=== PATIENT | female | born 1975 | race Caucasian/White ===

== ENCOUNTER 2021-11-28 02:08 | Inpatient (IN) | payer MEDICAID, OTHER ==
[~2021-11-28] VITALS: Ht 152.4 cm; Wt 87.0 kg
[2021-11-28 03:35] LABS: Basophils # (auto) 0.1 10 ^3/uL (0-0.2); Eosinophils # (auto) 0 10 ^3/uL (0-0.8); Hemoglobin 11.1 g/dL (12.2-16.2); Lymphocytes # (auto) 2.1 10 ^3/uL (0.4-5.4); Monocytes # (auto) 0.8 10 ^3/uL (0-1.3)
[2021-11-28 03:37] LABS: Basophils % (auto) 0.9 % (0.0-2.0); Eosinophils % (auto) 0.5 % (0.0-7.0); Hematocrit 36.7 % (36.0-46.0); Lymphocytes % (auto) 24.8 % (10.0-50.0); Mean Corpuscular Hemoglobin 19.4 pg (28.0-32.0); Mean Corpuscular Hgb Conc. 30.2 g/dL (32.0-36.0); Mean Corpuscular Volume 64.2 fL (80.0-100.0); Monocytes % (auto) 8.8 % (0.0-12.0); Neutrophils # (auto) 5.6 10 ^3/uL (1.6-8.6); Nucleated Red Blood Cells % 0.1 %; Red Blood Cells 5.72 10^6/uL (4.0-5.20); White Blood Cell 8.5 10^3/uL (4.4-10.8)
[2021-11-28 03:54] LABS: Albumin 2.6 g/dL (3.4-5.0); Anion Gap 5 (5-15); Blood Alcohol < 3.0 mg/dL (0-5); Blood Urea Nitrogen 17 mg/dL (7-18); Calcium 8.4 mg/dL (8.5-10.1); Carbon Dioxide 29 mmol/L (21-32); Chloride 103 mmol/L (98-107); Glucose 234 mg/dL (74-106); Magnesium 1.8 mg/dL (1.6-2.6); Potassium 3.3 mmol/L (3.5-5.1); Sodium 137 mmol/L (136-145)
[2021-11-28 03:59] LABS: Alcohol, Urine < 3.0 mg/dL (0-10); Amphetamine Screen, Urine NEGATIVE (NEGATIVE); Barbiturate Scree,Urine NEGATIVE (NEGATIVE); Benzodiazephine Screen, Urine NEGATIVE (NEGATIVE); Cannabinoid Screen, Urine NEGATIVE (NEGATIVE); Cocaine Screen, Urine NEGATIVE (NEGATIVE); Opiate Scree,Urine NEGATIVE (NEGATIVE); Phencyclidine Screen, Urine NEGATIVE (NEGATIVE)
[2021-11-28 04:02] LABS: Alanine Aminotransferase 40 U/L (13-56); Alkaline Phosphatase 125 U/L (45-117); Aspartate Aminotransferase 36 U/L (15-37); BUN/Creatinine Ratio 20.2; Bilirubin, Total 0.7 mg/dL (0.2-1.0); GFR African American 93 mL/min; GFR Non-African American 77 mL/min; Red Cell Distribution Width 20.8 % (11.8-14.3); Total Protein 7.2 g/dL (6.4-8.2)
[2021-11-28 04:06] LABS: Urine Bacteria FEW /hpf (None Seen); Urine Blood Negative /uL (Negative); Urine Hyaline Cast FEW /lpf (0 - 2); Urine Mucus FEW (None Seen); Urine Specific Gravity 1.034 (1.001-1.035); Urine WBC 5 /hpf (0 - 5)
[2021-11-28] MEDS ORDERED: NITROGLYCERIN 2% OINT 1GM PKG TD ONE (05:30)
[2021-11-28] MEDS ORDERED: ASPirin 325 MG TAB PO ONE (05:30)
[2021-11-28] MEDS ORDERED: METOPROLOL TARTRATE 25 MG TAB PO ONE (05:30)
[2021-11-28] MEDS ORDERED: MORPHINE SULFATE INJECTION 2 MG/ML SYRG IV ONE (05:30)
[2021-11-28] MEDS ORDERED: MORPHINE SULFATE 4 MG/ML SYR/VIAL ONE (05:58)
[2021-11-28] MEDS ORDERED: ENOXAPARIN SOD 100 MG/1 ML SYRINGE SC ONE (07:15)
[2021-11-28] MEDS ORDERED: POTASSIUM EFFERVESENT TAB 25 MEQ PO ONE (11:45)
[2021-11-28] MEDS ORDERED: hydrALAZINE HCL 20 MG/ML VL IV ONE (12:00)
[2021-11-28] MEDS ORDERED: LISINOPRIL 5 MG TAB PO SCH (13:00)
[2021-11-28] MEDS ORDERED: hydrALAZINE HCL 20 MG/ML VL IV PRN (13:00)
[2021-11-28] MEDS ORDERED: IOHEXOL 350 MG/ML 100ML IJ ONE (13:16)
[2021-11-28 13:28] LABS: Cholesterol 145 mg/dL (< 200); Triglycerides 124 mg/dL (< 150)
[2021-11-28] MEDS ORDERED: DEXTROSE (50%) 50ML SYRG IV PRN (13:30)
[2021-11-28 13:31] LABS: HDL Cholesterol 19 mg/dL (40-59)
[2021-11-28] MEDS: SODIUM CHLORIDE 0.9% 1,000 ML IV SCH ×2 (14:00→23:11)
[2021-11-28] MEDS: LISINOPRIL 5 MG TAB PO SCH ×2 (14:00→22:32)
[2021-11-28 17:46] VITALS: BP 172/82
[2021-11-28] MEDS: ACCU-CHEK COMFORT CURVE STRIP VI SCH ×2 (18:29→22:30)
[2021-11-28] MEDS: InsuLIN REG 1unit/0.01ml Soln (100units/ml) SC SCH ×2 (18:30→23:15)
[2021-11-28 22:00] VITALS: BP 187/83
[2021-11-28] MEDS ORDERED: ATORVASTATIN 20 MG TAB PO SCH (22:00)
[2021-11-28] MEDS: METOPROLOL TARTRATE 25 MG TAB PO SCH (22:31)
[2021-11-29] MEDS: InsuLIN REG 1unit/0.01ml Soln (100units/ml) SC SCH ×4 (00:02→12:07)
[2021-11-29] MEDS: ACCU-CHEK COMFORT CURVE STRIP VI SCH ×4 (00:11→12:06)
[2021-11-29] MEDS ORDERED: LABETALOL HCL 5 MG/ML 4ML SYRINGE IV PRN ×2 (03:00→03:15)
[2021-11-29 05:10] VITALS: BP 153/75
[2021-11-29 06:14] LABS: INR 1.17 (0.9-1.15); Partial Thromboplastin Time 26.1 sec (23.6-33.0)
[2021-11-29 09:00] VITALS: BP 164/78
[2021-11-29] MEDS: METOPROLOL TARTRATE 25 MG TAB PO SCH (09:43)
[2021-11-29] MEDS: LISINOPRIL 5 MG TAB PO SCH (09:44)
[2021-11-29] MEDS ORDERED: ASPirin-EC 81 mg tab PO SCH (10:00)
[2021-11-29] MEDS ORDERED: METOPROLOL TARTRATE 25 MG TAB PO ONE (11:00)
[2021-11-29] MEDS ORDERED: METOPROLOL TARTRATE 25 MG TAB PO SCH (22:00)
== END 2021-11-29 13:48 | disposition left against medical advice (07) | DRG 45 ==
LOC: ER 02:16 → TELE 12:54 → TELE-WESTW 15:55
PROVIDERS: ADMIT Internal Medicine; ATTEND Internal Medicine
DX: I63.9 Cerebral infarction, unspecified (principal); I21.4 Non-ST elevation (NSTEMI) myocardial infarction; E44.0 Moderate protein-calorie malnutrition; F03.90 Unspecified dementia, unspecified severity, without behavioral disturbance, psychotic disturbance, mood disturbance, and anxiety; E11.9 Type 2 diabetes mellitus without complications; D50.9 Iron deficiency anemia, unspecified; E66.9 Obesity, unspecified; E78.5 Hyperlipidemia, unspecified; E87.6 Hypokalemia; Z20.822 Contact with and (suspected) exposure to COVID-19; I10 Essential (primary) hypertension; Z53.29 Procedure and treatment not carried out because of patient's decision for other reasons; I25.10 Atherosclerotic heart disease of native coronary artery without angina pectoris; I16.0 Hypertensive urgency; Z68.37 Body mass index [BMI] 37.0-37.9, adult; Z88.8 Allergy status to other drugs, medicaments and biological substances; I25.2 Old myocardial infarction; Z82.49 Family history of ischemic heart disease and other diseases of the circulatory system; Z86.73 Personal history of transient ischemic attack (TIA), and cerebral infarction without residual deficits; Z79.84 Long term (current) use of oral hypoglycemic drugs
CPT/HCPCS: 36415; 70450; 70460; 70498; 70551; 71045; 80053; 80061; 80307; 80320; 81001; 81025; 82962; 83036; 83735; 83880; 84484; 85025; 85610; 85730; 87426; 92523; 93005; 93306; 93970; 96361; 96372; 96374; 96375; 97163; G0378; J1815; J3490

== ENCOUNTER 2021-12-02 00:58 | Inpatient (IN) | payer MEDICAID ==
[~2021-12-02] VITALS: Ht 149.9 cm; Wt 81.2 kg
[2021-12-02 02:18] LABS: Basophils # (auto) 0 10 ^3/uL (0-0.2); Basophils % (auto) 0.5 % (0.0-2.0); Eosinophils # (auto) 0 10 ^3/uL (0-0.8); Eosinophils % (auto) 0.5 % (0.0-7.0); Hematocrit 34.3 % (36.0-46.0); Hemoglobin 10.9 g/dL (12.2-16.2); Lymphocytes # (auto) 2.1 10 ^3/uL (0.4-5.4); Lymphocytes % (auto) 26.5 % (10.0-50.0); Mean Corpuscular Hemoglobin 20.3 pg (28.0-32.0); Mean Corpuscular Hgb Conc. 31.8 g/dL (32.0-36.0); Mean Corpuscular Volume 63.8 fL (80.0-100.0); Monocytes # (auto) 0.6 10 ^3/uL (0-1.3); Monocytes % (auto) 7.7 % (0.0-12.0); Neutrophils # (auto) 5.1 10 ^3/uL (1.6-8.6); Neutrophils % (auto) 64.8 % (37.0-80.0); Nucleated Red Blood Cells % 0.2 %; Red Blood Cells 5.38 10^6/uL (4.0-5.20); Red Cell Distribution Width 19.9 % (11.8-14.3); White Blood Cell 7.9 10^3/uL (4.4-10.8)
[2021-12-02] MEDS ORDERED: MORPHINE SULFATE 4 MG/ML SYR/VIAL ONE (02:23)
[2021-12-02] MEDS ORDERED: ONDANSETRON HCL 4 MG/2 ML VIAL ONE (02:23)
[2021-12-02 02:29] LABS: Calcium 8.4 mg/dL (8.5-10.1); Potassium 3.8 mmol/L (3.5-5.1)
[2021-12-02 02:33] LABS: Albumin 2.5 g/dL (3.4-5.0); BUN/Creatinine Ratio 16.7
[2021-12-02 02:37] LABS: Bilirubin, Total 0.7 mg/dL (0.2-1.0); Total Protein 6.9 g/dL (6.4-8.2)
[2021-12-02] MEDS ORDERED: ONDANSETRON HCL 4 MG/2 ML VIAL IV ONE (02:45)
[2021-12-02] MEDS ORDERED: MORPHINE SULFATE INJECTION 2 MG/ML SYRG IV ONE ×2 (02:45→05:02)
[2021-12-02] MEDS ORDERED: FUROSEMIDE 100 MG/10ML VIAL IV ONE (03:45)
[2021-12-02] MEDS ORDERED: NITROGLYCERIN 2% OINT 1GM PKG TD ONE (03:45)
[2021-12-02] MEDS ORDERED: LISINOPRIL 10 MG TAB PO ONE (03:45)
[2021-12-02] MEDS ORDERED: hydrALAZINE HCL 20 MG/ML VL IV ONE (06:15)
[2021-12-02 10:44] LABS: Urine Bacteria FEW /hpf (None Seen); Urine Blood Negative /uL (Negative); Urine Mucus FEW (None Seen); Urine Specific Gravity 1.025 (1.001-1.035); Urine WBC 3 /hpf (0 - 5)
[2021-12-02] MEDS ORDERED: MORPHINE SULFATE INJECTION 2 MG/ML SYRG IV PRN (13:00)
[2021-12-02] MEDS ORDERED: hydrALAZINE HCL 20 MG/ML VL IV PRN (13:00)
[2021-12-02] MEDS ORDERED: NITROGLYCERIN 0.4 MG SL TAB SL PRN (13:00)
[2021-12-02] MEDS ORDERED: DEXTROSE (50%) 50ML SYRG IV PRN (13:00)
[2021-12-02] MEDS ORDERED: ACETAMINOPHEN 325 MG TAB PO PRN (13:00)
[2021-12-02] MEDS ORDERED: ONDANSETRON HCL 4 MG/2 ML VIAL IV PRN (13:00)
[2021-12-02] MEDS ORDERED: HYDROcodone-ACET 5/325MG TAB PO PRN (13:00)
[2021-12-02] MEDS: MORPHINE SULFATE 4 MG/ML SYR/VIAL IV PRN ×3 (15:35→21:15)
[2021-12-02] MEDS: ACCU-CHEK COMFORT CURVE STRIP VI SCH ×2 (18:01→20:56)
[2021-12-02] MEDS: InsuLIN REG 1unit/0.01ml Soln (100units/ml) SC SCH (18:04)
[2021-12-02] MEDS ORDERED: HYDR-4902 PO (20:02)
[2021-12-02] MEDS ORDERED: ALBUAER3 IN (20:02)
[2021-12-02] MEDS ORDERED: GABA300C10 PO (20:02)
[2021-12-02] MEDS ORDERED: ATOR10TA52 PO (20:02)
[2021-12-02] MEDS ORDERED: ALPR0.25 PO (20:02)
[2021-12-02] MEDS ORDERED: ALBU108A5 IN (20:02)
[2021-12-02] MEDS ORDERED: INSU1INJ19 SC (20:02)
[2021-12-02] MEDS: METOPROLOL TARTRATE 25 MG TAB PO SCH (21:13)
[2021-12-02] MEDS: ALPRAZolam 0.25 MG TAB PO SCH (21:14)
[2021-12-02] MEDS ORDERED: LORazepam 2MG/ML-1ML VIAL IV ONE (21:30)
[2021-12-02 22:00] VITALS: BP 163/81
[2021-12-02] MEDS ORDERED: GABAPENTIN 100 MG CAP PO SCH (22:00)
[2021-12-02] MEDS ORDERED: InsuLIN REG 1unit/0.01ml Soln (100units/ml) SC SCH (22:00)
[2021-12-02] MEDS ORDERED: ATORVASTATIN 20 MG TAB PO SCH (22:00)
[2021-12-02 23:30] LABS: % Iron Saturation 5.5 % (15-50)
[2021-12-03 05:00] VITALS: BP 158/75
[2021-12-03] MEDS: ACCU-CHEK COMFORT CURVE STRIP VI SCH ×2 (05:20→11:55)
[2021-12-03] MEDS: InsuLIN REG 1unit/0.01ml Soln (100units/ml) SC SCH ×2 (05:22→11:55)
[2021-12-03] MEDS: ALPRAZolam 0.25 MG TAB PO SCH ×2 (05:24→14:49)
[2021-12-03 05:57] LABS: Basophils # (auto) 0.1 10 ^3/uL (0-0.2); Eosinophils # (auto) 0.1 10 ^3/uL (0-0.8); Hemoglobin 10.6 g/dL (12.2-16.2); Lymphocytes # (auto) 2.4 10 ^3/uL (0.4-5.4); Monocytes # (auto) 0.8 10 ^3/uL (0-1.3)
[2021-12-03 05:59] LABS: Basophils % (auto) 0.8 % (0.0-2.0); Eosinophils % (auto) 1.8 % (0.0-7.0); Hematocrit 34.4 % (36.0-46.0); Lymphocytes % (auto) 32.2 % (10.0-50.0); Mean Corpuscular Hemoglobin 19.5 pg (28.0-32.0); Mean Corpuscular Hgb Conc. 30.7 g/dL (32.0-36.0); Mean Corpuscular Volume 63.4 fL (80.0-100.0); Monocytes % (auto) 11.2 % (0.0-12.0); Nucleated Red Blood Cells % 0.1 %; Red Blood Cells 5.43 10^6/uL (4.0-5.20); White Blood Cell 7.4 10^3/uL (4.4-10.8)
[2021-12-03 06:28] LABS: Albumin 2.5 g/dL (3.4-5.0); BUN/Creatinine Ratio 23.5; Calcium 8.3 mg/dL (8.5-10.1); Potassium 3.8 mmol/L (3.5-5.1)
[2021-12-03 06:31] LABS: Bilirubin, Total 0.7 mg/dL (0.2-1.0); Total Protein 6.8 g/dL (6.4-8.2)
[2021-12-03 08:37] VITALS: BP 169/93
[2021-12-03] MEDS ORDERED: HYDR25TA4 PO (09:52)
[2021-12-03] MEDS ORDERED: ASPI-543 PO (09:52)
[2021-12-03] MEDS ORDERED: METO-158 PO (09:52)
[2021-12-03] MEDS ORDERED: PAR20T PO (09:52)
[2021-12-03] MEDS ORDERED: METF-929 PO (09:52)
[2021-12-03] MEDS ORDERED: INSREG3 SC (09:52)
[2021-12-03] MEDS ORDERED: LISI40TA11 PO (09:52)
[2021-12-03] MEDS ORDERED: OXYB10TA14 PO (09:52)
[2021-12-03] MEDS ORDERED: INSU1INJ19 SC (09:52)
[2021-12-03] MEDS ORDERED: ALPR0.5T7 PO (09:52)
[2021-12-03] MEDS ORDERED: EXEN2INJ SC (09:52)
[2021-12-03] MEDS ORDERED: ATOR20TA50 PO (09:52)
[2021-12-03] MEDS ORDERED: NITR0.4S29 SL (09:52)
[2021-12-03] MEDS ORDERED: GABA-339 PO (09:52)
[2021-12-03] MEDS ORDERED: HYDR-4798 PO (09:52)
[2021-12-03] MEDS: METOPROLOL TARTRATE 25 MG TAB PO SCH (09:53)
[2021-12-03] MEDS ORDERED: ENOXAPARIN SOD 40 MG/0.4 ML SYRINGE SC SCH (10:00)
[2021-12-03] MEDS ORDERED: ASPirin 81 mg TAB PO SCH (10:00)
[2021-12-03 12:50] VITALS: BP 114/96
== END 2021-12-03 16:50 | disposition left against medical advice (07) | DRG 190 ==
LOC: EDBD 00:58 → ER 01:01 → TELE 12:46 → TELE-CENTR 18:30
PROVIDERS: ADMIT Internal Medicine; ATTEND Internal Medicine
DX: I21.9 Acute myocardial infarction, unspecified (principal); E44.0 Moderate protein-calorie malnutrition; D50.9 Iron deficiency anemia, unspecified; E66.01 Morbid (severe) obesity due to excess calories; E78.5 Hyperlipidemia, unspecified; F17.210 Nicotine dependence, cigarettes, uncomplicated; I10 Essential (primary) hypertension; I16.0 Hypertensive urgency; Z20.822 Contact with and (suspected) exposure to COVID-19; G47.00 Insomnia, unspecified; R09.89 Other specified symptoms and signs involving the circulatory and respiratory systems; Z53.29 Procedure and treatment not carried out because of patient's decision for other reasons; I25.10 Atherosclerotic heart disease of native coronary artery without angina pectoris; Z68.36 Body mass index [BMI] 36.0-36.9, adult; Z86.73 Personal history of transient ischemic attack (TIA), and cerebral infarction without residual deficits; Z88.8 Allergy status to other drugs, medicaments and biological substances; I25.2 Old myocardial infarction; Z79.4 Long term (current) use of insulin; Z79.82 Long term (current) use of aspirin; Z79.899 Other long term (current) drug therapy; Z82.3 Family history of stroke; Z82.49 Family history of ischemic heart disease and other diseases of the circulatory system; Z83.3 Family history of diabetes mellitus
CPT/HCPCS: 36415; 70450; 71045; 80053; 81001; 82728; 82962; 83540; 83550; 83880; 84484; 84702; 85025; 87081; 87426; 93005; 95819; 96374; 96375; 96376; 97163; 99291; G0378; J1815; J2405

== ENCOUNTER 2022-02-19 01:30 | Emergency (ER) | payer MEDICAID ==
[~2022-02-19] VITALS: Ht 149.9 cm; Wt 77.1 kg
[2022-02-19 01:30] VITALS: BP 198/95
[~2022-02-19 01:30] MED LIST: ALBUAER3 IN; ALPR0.5T7 PO; ASPI-543 PO; ATOR20TA50 PO; EXEN2INJ SC; GABA-339 PO; HYDR-4798 PO; HYDR25TA4 PO; INSREG3 SC; INSU1INJ19 SC; LISI40TA11 PO; METF-929 PO; METO-158 PO; NITR0.4S29 SL; OXYB10TA14 PO; PAR20T PO
[2022-02-19 02:31] LABS: BUN/Creatinine Ratio 12.2; Calcium 8.4 mg/dL (8.5-10.1); Potassium 3.9 mmol/L (3.5-5.1)
[2022-02-19 02:34] LABS: Bilirubin, Total 0.3 mg/dL (0.2-1.0); Total Protein 7.4 g/dL (6.4-8.2)
[2022-02-19 03:08] LABS: Basophils # (auto) 0 10 ^3/uL (0-0.2); Basophils % (auto) 0.5 % (0.0-2.0); Eosinophils # (auto) 0.1 10 ^3/uL (0-0.8); Eosinophils % (auto) 1.3 % (0.0-7.0); Mean Corpuscular Hgb Conc. 32.6 g/dL (32.0-36.0); Monocytes # (auto) 0.4 10 ^3/uL (0-1.3); Nucleated Red Blood Cells % 0.1 %
[2022-02-19 03:10] LABS: Hematocrit 42.1 % (36.0-46.0); Hemoglobin 13.7 g/dL (12.2-16.2); Lymphocytes # (auto) 1.7 10 ^3/uL (0.4-5.4); Lymphocytes % (auto) 20.7 % (10.0-50.0); Mean Corpuscular Hemoglobin 23.7 pg (28.0-32.0); Mean Corpuscular Volume 72.7 fL (80.0-100.0); Monocytes % (auto) 5.4 % (0.0-12.0); Neutrophils % (auto) 72.1 % (37.0-80.0); White Blood Cell 8.3 10^3/uL (4.4-10.8)
[2022-02-19 03:11] LABS: Red Cell Distribution Width 23.7 % (11.8-14.3)
== END 2022-02-19 07:07 | disposition left against medical advice (07) ==
LOC: ER 01:36
DX: R53.1 Weakness (principal); R51.9 Headache, unspecified; R07.9 Chest pain, unspecified; Z53.21 Procedure and treatment not carried out due to patient leaving prior to being seen by health care provider
CPT/HCPCS: 36415; 70450; 71045; 80053; 84484; 85025